=== PATIENT | female | born 1995 | race African-American/Black ===

== ENCOUNTER 2017-08-15 21:28 | Emergency (ER) | payer BC, OTHER ==
[2017-08-15 22:20] LABS: #Basophils 0.1 thou/uL (0.0-0.2); #Eosinphils 0.4 thou/uL (0.0-0.7); #Lymphocytes 2.9 thou/uL (1.20-3.40); #Monocytes 0.9 thou/uL (0.11-0.59); #Neutrophils 4.8 thou/uL (1.40-6.50); %Basophils 0.6 % (0.0-1.0); %Eosinophils 4.1 % (0.0-10.0); %Lymphocytes 32.4 % (28.0-48.0); %Monocytes 9.7 % (0.0-4.0); Hematocrit 39.4 % (36.0-47.0); Mean Platelet Volume 7.4 fL (7.4-10.4); Red Blood Cell (RBC) Count 4.47 mill/uL (4.00-5.20); White Blood Cell (WBC) Count 9.1 thou/uL (4.8-10.8)
[2017-08-15 22:34] LABS: ALT (SGPT) 26 U/L (8-55); AST (SGOT) 25 U/L (5-34); Alkaline Phosphatase 64 U/L (40-150); Anion Gap 14 mmol/L (10-20); BUN (Urea Nitrogen) 10 mg/dL (7.0-18.7); Bilirubin, Total 0.8 mg/dL (0.2-1.2); Calc. Creatinine Clearance 0 mL/min (70-130); Carbon Dioxide 24 mmol/L (22-29); Chloride 105 mmol/L (98-107); Estimated GFR-MDRD Greater than 90; Globulin 3.4 g/dL (2.4-3.5); Protein, Total 7.2 g/dL (6.0-8.3)
[2017-08-15 23:12] LABS: Bilirubin Small (Negative); Blood, Urine Moderate (Negative); Glucose, Urine (Dipstick) Negative (Negative); Ketone, Urine Negative (Negative); Nitrite Negative (Negative); Protein, Urine (Dipstick) Trace mg/dL (Neg-Trace)
[2017-08-15 23:14] LABS: Bacteria/HPF 1+ HPF (None Seen); Hyaline Casts/LPF 0-3 HYALINE CAST LPF (0-3 Hyaline)
[2017-08-15 23:23] LABS: Yeast-All Forms None Seen HPF (None Seen)
[2017-08-15 23:47] LABS: Amphetamine Not Detected (NotDetected); Methadone Not Detected (NotDetected); Methamphetamine Not Detected (NotDetected)
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
[2017-08-16] MEDS ORDERED: HYDROcodone/Acetaminophen 10/325 mg Tablet ONE (00:09)
== END 2017-08-16 00:24 | disposition home or self-care (01) ==
LOC: ERS 21:28
DX: G40.909 Epilepsy, unspecified, not intractable, without status epilepticus (principal); S00.93XA Contusion of unspecified part of head, initial encounter; F25.9 Schizoaffective disorder, unspecified; G43.909 Migraine, unspecified, not intractable, without status migrainosus; J45.909 Unspecified asthma, uncomplicated; F41.9 Anxiety disorder, unspecified; Z79.899 Other long term (current) drug therapy; W19.XXXA Unspecified fall, initial encounter
CPT/HCPCS: 36416; 70450; 80053; 80306; 81003; 81015; 81025; 83690; 84146; 84703; 85025; 93005; 94760

== ENCOUNTER 2017-10-09 09:25 | Outpatient (CLI) | payer BC, MEDICAID ==
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
== END 2017-10-09 09:26 | disposition home or self-care (01) ==
LOC: EEG 09:25
PROVIDERS: ATTEND Student in an Organized Health Care Education/Training Program
DX: G40.909 Epilepsy, unspecified, not intractable, without status epilepticus (principal); G93.89 Other specified disorders of brain; Q04.6 Congenital cerebral cysts
CPT/HCPCS: 70551; 95822

== ENCOUNTER 2017-10-25 11:02 | Emergency (ER) | payer BC, OTHER ==
--- NOTE | 2017-10-25 12:17 | RAD ---
PA AND LATERAL CHEST: Date: 10-25-17 History: Cough, chest pain. Congestion. Comparison: 07-11-15 FINDINGS: The cardiac silhouette and pulmonary vasculature are within normal limits. The lungs are clear. There has been no interval change from the prior exam. IMPRESSION: No acute cardiopulmonary process. POS: [facility]
== END 2017-10-25 14:30 | disposition home or self-care (01) ==
LOC: ERS 11:02
DX: J11.1 Influenza due to unidentified influenza virus with other respiratory manifestations (principal); R23.8 Other skin changes; G40.909 Epilepsy, unspecified, not intractable, without status epilepticus; G43.909 Migraine, unspecified, not intractable, without status migrainosus; J45.909 Unspecified asthma, uncomplicated; F25.9 Schizoaffective disorder, unspecified; F41.9 Anxiety disorder, unspecified; F32.9 Major depressive disorder, single episode, unspecified; Z79.899 Other long term (current) drug therapy
CPT/HCPCS: 71046; 87804; 93005

== ENCOUNTER 2018-05-11 15:44 | Emergency (ER) | payer BC, OTHER ==
[2018-05-11 16:27] LABS: #Basophils 0.1 thou/uL (0.0-0.2); #Eosinphils 0.4 thou/uL (0.0-0.7); #Lymphocytes 2.3 thou/uL (1.20-3.40); #Monocytes 0.7 thou/uL (0.11-0.59); #Neutrophils 6.9 thou/uL (1.40-6.50); %Basophils 0.5 % (0.0-1.0); %Lymphocytes 21.9 % (21.0-51.0); %Monocytes 6.5 % (0.0-10.0); Hemoglobin 12.8 g/dL (12.0-16.0); Mean Corpuscular HGB CONC 32.6 g/dL (32.0-36.0); Mean Corpuscular Hemoglobin 27.2 pg (27.0-31.0); Mean Corpuscular Volume 83.4 fL (78.0-98.0); Mean Platelet Volume 7.3 fL (7.4-10.4); Platelet Count 468 thou/uL (130-400); Red Blood Cell (RBC) Count 4.69 mill/uL (4.20-5.40); White Blood Cell (WBC) Count 10.3 thou/uL (4.8-10.8)
[2018-05-11 16:47] LABS: ALT (SGPT) 23 U/L (8-55); AST (SGOT) 19 U/L (5-34); Albumin 4.7 g/dL (3.5-5.0); Alkaline Phosphatase 77 U/L (40-150); Anion Gap 14 mmol/L (10-20); BUN (Urea Nitrogen) 11 mg/dL (7.0-18.7); Bilirubin, Total 1.3 mg/dL (0.2-1.2); Calc. Creatinine Clearance 0 mL/min (70-130); Calcium 9.7 mg/dL (7.8-10.44); Carbon Dioxide 26 mmol/L (22-29); Chloride 105 mmol/L (98-107); Estimated GFR-MDRD Greater than 90; Globulin 3.5 g/dL (2.4-3.5); Glucose 100 mg/dL (70-105); Potassium 3.2 mmol/L (3.5-5.1); Protein, Total 8.2 g/dL (6.0-8.3); Sodium 142 mmol/L (136-145)
[2018-05-11] MEDS ORDERED: hydrOXYzine 25 MG TAB ONE (17:20)
== END 2018-05-11 17:41 | disposition left against medical advice (07) ==
LOC: ERS 15:44
DX: R20.0 Anesthesia of skin (principal); F41.9 Anxiety disorder, unspecified; F32.9 Major depressive disorder, single episode, unspecified; Z79.899 Other long term (current) drug therapy
CPT/HCPCS: 36415; 36416; 80053; 85025; 93005

== ENCOUNTER 2018-05-17 22:47 | Emergency (ER) | payer OTHER ==
[2018-05-17] MEDS ORDERED: Acetaminophen 500 MG TAB ONE (23:09)
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
[2018-05-17] MEDS ORDERED: Bacitracin Zinc 1 Packet ONE (23:34)
[2018-05-17] MEDS ORDERED: traMADol HCl 50 MG TAB ONE (23:43)
== END 2018-05-17 23:50 | disposition home or self-care (01) ==
LOC: ERS 22:47
DX: S62.525A Nondisplaced fracture of distal phalanx of left thumb, initial encounter for closed fracture (principal); G40.909 Epilepsy, unspecified, not intractable, without status epilepticus; G43.909 Migraine, unspecified, not intractable, without status migrainosus; J45.909 Unspecified asthma, uncomplicated; F25.9 Schizoaffective disorder, unspecified; F41.9 Anxiety disorder, unspecified; F32.9 Major depressive disorder, single episode, unspecified; Z79.899 Other long term (current) drug therapy; W23.0XXA Caught, crushed, jammed, or pinched between moving objects, initial encounter

== ENCOUNTER 2018-05-22 14:29 | Emergency (ER) | payer OTHER ==
[2018-05-22] MEDS ORDERED: HYDROcodone/Acetaminophen 10/325 mg Tablet ONE (15:14)
--- NOTE | 2018-05-22 15:52 | RAD ---
LEFT THUMB RADIOGRAPHS THREE VIEWS: Date: 05-22-18 Provided Clinical History: Thumb pain status post injury. FINDINGS: Comparison made with 05-17-18. Nondisplaced fracture involving the terminal tuft of the thumb distal phalanx is redemonstrated. No a dditional fracture is evident. Alignment appears anatomic. Joint spaces appear preserved. IMPRESSION: Nondisplaced thumb distal phalangeal fractures are demonstrated. POS: [facility]
[2018-05-22] MEDS ORDERED: Bacitracin Zinc 1 Packet ONE (16:25)
== END 2018-05-22 16:51 | disposition home or self-care (01) ==
LOC: ERS 14:29
DX: S62.525A Nondisplaced fracture of distal phalanx of left thumb, initial encounter for closed fracture (principal); G40.909 Epilepsy, unspecified, not intractable, without status epilepticus; G43.909 Migraine, unspecified, not intractable, without status migrainosus; J45.909 Unspecified asthma, uncomplicated; F25.9 Schizoaffective disorder, unspecified; F32.9 Major depressive disorder, single episode, unspecified; F41.9 Anxiety disorder, unspecified; Z79.899 Other long term (current) drug therapy; W23.0XXA Caught, crushed, jammed, or pinched between moving objects, initial encounter

== ENCOUNTER 2018-07-16 19:28 | Emergency (ER) | payer OTHER ==
[2018-07-16] MEDS ORDERED: Magnesium Sulfate 2 GM/100 ML BAG ONE (19:39)
--- NOTE | 2018-07-16 19:51 | RAD ---
PORTABLE AP CHEST X-RAY 07/16/18 HISTORY: Asthma attack, dyspnea. COMPARISON: 07/11/15. FINDINGS: Cardiac silhouette and pulmonary vasculature are within normal limits for the portable technique of t he study. This exam is obtained with a shallow depth of inspiration and kyphotic positioning, but the lungs are clear. There has been no interval change from prior exam. IMPRESSION: No acute cardiopulmonary process. POS: [facility]
[2018-07-16] MEDS ORDERED: Albuterol Sulfate 2.5 mg/3 ml Neb ONE ×2 (19:52)
[2018-07-16 20:20] LABS: #Eosinphils 0.5 thou/uL (0.0-0.7); #Lymphocytes 2.6 thou/uL (1.20-3.40); #Monocytes 0.5 thou/uL (0.11-0.59); %Basophils 0.5 % (0.0-1.0); %Lymphocytes 27.2 % (21.0-51.0); %Monocytes 5.3 % (0.0-10.0); %Neutrophils 62.1 % (42.0-75.0); Hemoglobin 11.9 g/dL (12.0-16.0); Mean Corpuscular HGB CONC 30.7 g/dL (32.0-36.0); Mean Corpuscular Hemoglobin 26.5 pg (27.0-31.0); Mean Corpuscular Volume 86.1 fL (78.0-98.0); Mean Platelet Volume 7.6 fL (7.4-10.4); Platelet Count 389 thou/uL (130-400); RBC Distribution Width 14.9 % (11.5-14.5); Red Blood Cell (RBC) Count 4.49 mill/uL (4.20-5.40); White Blood Cell (WBC) Count 9.6 thou/uL (4.8-10.8)
[2018-07-16 20:43] LABS: ALT (SGPT) 15 U/L (8-55); AST (SGOT) 16 U/L (5-34); Albumin 4.1 g/dL (3.5-5.0); Alkaline Phosphatase 70 U/L (40-150); Anion Gap 15 mmol/L (10-20); BUN (Urea Nitrogen) 11 mg/dL (7.0-18.7); Bilirubin, Total 0.5 mg/dL (0.2-1.2); CK (CPK) 119 U/L (29-168); Calc. Creatinine Clearance 0 mL/min (70-130); Calcium 9.2 mg/dL (7.8-10.44); Carbon Dioxide 19 mmol/L (22-29); Chloride 107 mmol/L (98-107); Estimated GFR-MDRD Greater than 90; Globulin 3.2 g/dL (2.4-3.5); Glucose 133 mg/dL (70-105); Potassium 3.4 mmol/L (3.5-5.1); Protein, Total 7.3 g/dL (6.0-8.3); Sodium 138 mmol/L (136-145)
== END 2018-07-16 22:32 | disposition short-term general hospital (02) ==
LOC: ERS 19:28
DX: J45.901 Unspecified asthma with (acute) exacerbation (principal); G40.909 Epilepsy, unspecified, not intractable, without status epilepticus; G43.909 Migraine, unspecified, not intractable, without status migrainosus; F41.9 Anxiety disorder, unspecified; F32.9 Major depressive disorder, single episode, unspecified; Z79.899 Other long term (current) drug therapy
CPT/HCPCS: 36415; 71045; 80053; 82550; 85025; 93005; 94644; 96374; J3475; J7611; J7620

== ENCOUNTER 2018-12-21 01:27 | Inpatient (IN) | payer OTHER ==
[2018-12-21] MEDS ORDERED: EPINEPHrine 1 MG/ML AMP ONE ×3 (01:33→02:37)
[2018-12-21] MEDS ORDERED: methylPREDNISolone Sod Succ/PF 125 MG/2 ML VIAL ONE (01:33)
[2018-12-21] MEDS ORDERED: diphenhydrAMINE 50 MG/ML VIAL ONE (01:33)
[2018-12-21] MEDS ORDERED: Famotidine/PF 20 mg/2ml Vial ONE ×2 (01:33→09:51)
[2018-12-21] MEDS ORDERED: Ondansetron PF 4 MG/2 ML Vial ONE (01:49)
[2018-12-21] MEDS ORDERED: Magnesium 2 GM/50 ML BAG (IN WATER) ONE (03:05)
[2018-12-21 03:21] LABS: #Basophils 0.1 thou/uL (0.0-0.2); #Eosinphils 0.4 thou/uL (0.0-0.7); #Lymphocytes 3.4 thou/uL (1.20-3.40); #Monocytes 0.5 thou/uL (0.11-0.59); #Neutrophils 9.3 thou/uL (1.40-6.50); %Basophils 0.4 % (0.0-1.0); %Eosinophils 2.9 % (0.0-10.0); %Lymphocytes 24.7 % (21.0-51.0); %Monocytes 3.9 % (0.0-10.0); %Neutrophils 68.1 % (42.0-75.0); Hemoglobin 11.5 g/dL (12.0-16.0); Mean Corpuscular Hemoglobin 26.4 pg (27.0-31.0); Mean Corpuscular Volume 85.1 fL (78.0-98.0); Mean Platelet Volume 7.4 fL (7.4-10.4); Platelet Count 461 thou/uL (130-400); RBC Distribution Width 14.2 % (11.5-14.5); Red Blood Cell (RBC) Count 4.35 mill/uL (4.20-5.40); White Blood Cell (WBC) Count 13.6 thou/uL (4.8-10.8)
[2018-12-21 03:31] LABS: BHCG - Serum Negative (NEGATIVE); Pregs Control Background? CLEAR/WHITE (CLR/WHITE); Pregs Control Bar Appear? YES (CONTROL BAR)
[2018-12-21 03:44] LABS: ALT (SGPT) 13 U/L (8-55); AST (SGOT) 15 U/L (5-34); Alkaline Phosphatase 69 U/L (40-150); Anion Gap 14 mmol/L (10-20); BUN (Urea Nitrogen) 15 mg/dL (7.0-18.7); Bilirubin, Total 0.6 mg/dL (0.2-1.2); Calc. Creatinine Clearance 0 mL/min (70-130); Calcium 9.2 mg/dL (7.8-10.44); Carbon Dioxide 22 mmol/L (22-29); Chloride 105 mmol/L (98-107); Estimated GFR-MDRD Greater than 90; Globulin 3.1 g/dL (2.4-3.5); Glucose 199 mg/dL (70-105); Potassium 3.1 mmol/L (3.5-5.1); Protein, Total 7.1 g/dL (6.0-8.3); Sodium 138 mmol/L (136-145)
[2018-12-21] MEDS ORDERED: Albuterol Sulfate 1.25 MG/3 ML NEB NEB PRN (04:30)
[2018-12-21] MEDS ORDERED: Albuterol Sulfate 2.5 mg/3 ml Neb ONE (04:34)
[2018-12-21] MEDS ORDERED: Albuterol Sulfate 2.5 mg/0.5 ml Neb ONE (04:34)
[2018-12-21] MEDS ORDERED: diphenhydrAMINE 50 MG in Sodium Chloride 0.9% 50 ML IVPB SCH (04:45)
[2018-12-21] MEDS ORDERED: Ondansetron ODT 4 MG TAB PO PRN (05:06)
[2018-12-21] MEDS ORDERED: Acetaminophen 325 MG TAB PO PRN (05:06)
[2018-12-21] MEDS ORDERED: Ondansetron PF 4 MG/2 ML Vial IVP PRN (05:06)
[2018-12-21] MEDS ORDERED: methylPREDNISolone Sod Succ 40 MG VIAL ONE ×3 (07:46→18:05)
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
--- NOTE | 2018-12-21 08:32 | RAD ---
CHEST 1 VIEW: Date: 12/21/18 INDICATION: History of allergic reaction, wheezing, and dyspnea. COMPARISON: Prior exam dated 07/16/18. FINDINGS: There are low lung volumes accentuated with the cardiac silhouette and pulmonary vasculature. No defi nite consolidation, pleural effusion, or pneumothorax evident. IMPRESSION: Low lung volumes. POS: [facility]
[2018-12-21] MEDS ORDERED: Enoxaparin Sodium 40 MG/0.4 ML SYRINGE ONE (09:51)
[2018-12-21] MEDS ORDERED: Acetaminophen 500 MG TAB ONE (14:10)
[2018-12-21] MEDS: methylPREDNISolone Sod Succ/PF 125 MG/2 ML VIAL IVP SCH (18:26)
--- NOTE | 2018-12-21 19:30 | PDOC.PN ---
- Subjective Encounter Start Date: 12/21/18 Encounter Start Time: 08:40 Subjective: Seen -feeling better - Objective Resuscitation Status - Order Detail: 12/21/18 05:06 Resuscitation Status Routine Resuscitation Status: FULL: Full Resuscitation Vital Signs & Weight: Vital Signs (12 hours) Pulse Resp Pulse Ox 12/21/18 15:11 119 H 23 H 98 Result Diagrams: 12/21/18 03:13 12/21/18 03:13 Phys Exam - Physical Examination Constitutional: NAD HEENT: PERRLA, moist MMs, sclera anicteric Neck: no nodes, no JVD, supple, full ROM Respiratory: wheezing present Cardiovascular: RRR, no significant murmur, no rub Tachycardic Dx/Plan (1) Asthma Code(s): J45.909 - UNSPECIFIED ASTHMA, UNCOMPLICATED Status: Acute (2) Hypokalemia Code(s): E87.6 - HYPOKALEMIA Status: Acute (3) Obesity Code(s): E66.9 - OBESITY, UNSPECIFIED Status: Acute (4) Exacerbation of allergic asthma Code(s): J45.901 - UNSPECIFIED ASTHMA WITH (ACUTE) EXACERBATION Status: Acute - Plan DVT proph w/heparin pulmonary/critical consult * .
[2018-12-22] MEDS ORDERED: Famotidine/PF 20 mg/2ml Vial ONE (00:52)
[2018-12-22] MEDS ORDERED: methylPREDNISolone Sod Succ/PF 125 MG/2 ML VIAL ONE ×2 (00:52→06:42)
[2018-12-22] MEDS: Famotidine/PF 20 mg/2ml Vial SLOW IVP SCH ×4 (01:11→20:28)
[2018-12-22] MEDS: methylPREDNISolone Sod Succ/PF 125 MG/2 ML VIAL IVP SCH ×4 (01:11→14:18)
[2018-12-22] MEDS: diphenhydrAMINE 50 MG in Sodium Chloride 0.9% 50 ML IVPB SCH ×4 (01:12→17:14)
[2018-12-22 04:36] LABS: Band 6 % (5-11); Hemoglobin 11.1 g/dL (12.0-16.0); Lymphocytes 2 % (21-51); MDiff Complete? YES; Mean Corpuscular HGB CONC 30.6 g/dL (32.0-36.0); Mean Platelet Volume 7.7 fL (7.4-10.4); Monocytes 2 % (0-10); Neutrophil 90 % (42-75); Platelet Count 440 thou/uL (130-400); Platelet Morphology Comment Appears Adequate; RBC Distribution Width 14.3 % (11.5-14.5); RBC Morphology Normal; Red Blood Cell (RBC) Count 4.26 mill/uL (4.20-5.40); White Blood Cell (WBC) Count 20.5 thou/uL (4.8-10.8)
[2018-12-22 04:40] LABS: Anion Gap 13 mmol/L (10-20); BUN (Urea Nitrogen) 9 mg/dL (7.0-18.7); Calc. Creatinine Clearance 0 mL/min (70-130); Calcium 9.3 mg/dL (7.8-10.44); Carbon Dioxide 22 mmol/L (22-29); Chloride 107 mmol/L (98-107); Estimated GFR-MDRD Greater than 90; Glucose 149 mg/dL (70-105); Potassium 4.5 mmol/L (3.5-5.1); Sodium 137 mmol/L (136-145)
[2018-12-22] MEDS: Enoxaparin Sodium 40 MG/0.4 ML SYRINGE SC SCH ×2 (07:56→12:18)
[2018-12-22 08:38] VITALS: BMI 51.8
--- NOTE | 2018-12-22 10:22 | PDOC.PN ---
- Subjective Encounter Start Date: 12/22/18 Encounter Start Time: 11:20 Subjective: Patient reports breathing improved. No more wheezing. She does get diffuse -: tightness and pressure across her back that resolved with nebs but -: comes back in about 2 hours. Feels weak and unstable on standing. - Objective Resuscitation Status - Order Detail: 12/21/18 05:06 Resuscitation Status Routine Resuscitation Status: FULL: Full Resuscitation MAR Reviewed: Yes Vital Signs & Weight: Vital Signs (12 hours) Temp Pulse Resp BP Pulse Ox 12/22/18 08:30 98.2 F 113 H 18 122/74 94 L 12/22/18 07:27 99 22 H 95 12/21/18 22:41 107 H 17 96 Weight Weight 274 lb 9.6 oz Result Diagrams: 12/22/18 03:54 12/22/18 03:54 Phys Exam - Physical Examination Constitutional: NAD HEENT: moist MMs Respiratory: no wheezing, no rales, no rhonchi, clear to auscultation bilateral breathing easily on room air on my exam Cardiovascular: RRR, no significant murmur Gastrointestinal: soft, positive bowel sounds Musculoskeletal: no edema Neurological: non-focal, moves all 4 limbs Psychiatric: normal affect, A&O x 3 Dx/Plan (1) Anaphylaxis Code(s): T78.2XXA - ANAPHYLACTIC SHOCK, UNSPECIFIED, INITIAL ENCOUNTER Status : Acute Comment: uncertain trigger, improved after multiple doses of epinephrine in the ER (2) Exacerbation of allergic asthma Code(s): J45.901 - UNSPECIFIED ASTHMA WITH (ACUTE) EXACERBATION Status: Acute Comment: on nebs, steroids, pulmonary consult (3) Hypokalemia Code(s): E87.6 - HYPOKALEMIA Status: Resolved (4) Obesity Code(s): E66.9 - OBESITY, UNSPECIFIED Status: Chronic (5) Unsteady gait Code(s): R26.81 - UNSTEADINESS ON FEET Status: Acute Comment: check orthostatics, PT consult - Plan cont current plan of care, respiratory therapy * . - Discharge Day Encounter end time: 11:30
[2018-12-22] MEDS ORDERED: DULoxetine 60 MG CAP PO SCH (21:00)
[2018-12-22] MEDS ORDERED: Montelukast Sodium 10 mg Tablet PO SCH (21:00)
[2018-12-22] MEDS ORDERED: LURASIDONE HCL 30 MG PO SCH (21:00)
[2018-12-22] MEDS ORDERED: hydrOXYzine 25 MG TAB PO SCH (21:00)
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
[2018-12-23] MEDS: Mometasone/Formoterol 120 PUFF INHALER INH SCH ×3 (00:28→19:51)
[2018-12-23] MEDS ORDERED: predniSONE 20 MG TAB PO SCH (08:00)
--- NOTE | 2018-12-23 09:04 | PDOC.PN ---
- Subjective Encounter Start Date: 12/23/18 Encounter Start Time: 10:10 Subjective: Patient with marked improvement in SOB and chest tightness. Able -: to walk more steadily as well. - Objective Resuscitation Status - Order Detail: 12/21/18 05:06 Resuscitation Status Routine Resuscitation Status: FULL: Full Resuscitation MAR Reviewed: Yes Vital Signs & Weight: Vital Signs (12 hours) Temp Pulse Resp BP BP Pulse Ox 12/23/18 08:00 99 F 86 20 113/72 93 L 12/23/18 06:57 60 14 12/23/18 04:00 98.0 F 73 20 126/73 98 12/23/18 00:31 93 18 96 Weight Weight 273 lb 8 oz I&O: 12/22/18 12/23/18 12/24/18 06:59 06:59 06:59 Intake Total 600 Balance 600 Result Diagrams: 12/22/18 03:54 12/22/18 03:54 Phys Exam - Physical Examination Constitutional: NAD HEENT: moist MMs Respiratory: no wheezing, no rales, no rhonchi, clear to auscultation bilateral Cardiovascular: RRR, no significant murmur Gastrointestinal: soft, positive bowel sounds Musculoskeletal: no edema Neurological: non-focal, moves all 4 limbs Psychiatric: normal affect, A&O x 3 Dx/Plan (1) Anaphylaxis Code(s): T78.2XXA - ANAPHYLACTIC SHOCK, UNSPECIFIED, INITIAL ENCOUNTER Status : Resolved Comment: uncertain trigger, improved after multiple doses of epinephrine in the ER (2) Exacerbation of allergic asthma Code(s): J45.901 - UNSPECIFIED ASTHMA WITH (ACUTE) EXACERBATION Status: Acute Comment: on nebs, steroids, Dr. Burgos following (3) Hypokalemia Code(s): E87.6 - HYPOKALEMIA Status: Resolved (4) Obesity Code(s): E66.9 - OBESITY, UNSPECIFIED Status: Chronic (5) Unsteady gait Code(s): R26.81 - UNSTEADINESS ON FEET Status: Acute Comment: No orthostatic hypotension, reported dizziness and LE pain with ambulation but steady on feet per physical therapy - Plan cont current plan of care, PT/OT, respiratory therapy, DVT proph w/lovenox * . - Discharge Day Encounter end time: 10:20
[2018-12-23] MEDS: Famotidine/PF 20 mg/2ml Vial SLOW IVP SCH (10:32)
[2018-12-23] MEDS: Enoxaparin Sodium 40 MG/0.4 ML SYRINGE SC SCH (10:32)
[2018-12-23 12:19] VITALS: TEMP 97.9
[2018-12-23 14:31] VITALS: BP 134/66
[2018-12-23] MEDS ORDERED: Famotidine 20 MG TAB PO SCH (21:00)
--- NOTE | 2018-12-24 03:05 | DIS ---
DATE OF ADMISSION: 12/21/2018 DATE OF DISCHARGE: 12/23/2018 PRIMARY CARE PHYSICIAN: Dr. Arlyn Villatoro. REASON FOR ADMISSION: Respiratory anaphylaxis. DIAGNOSES AT DISCHARGE: 1. Anaphylaxis, resolved. 2. Asthma exacerbation, improved. 3. Hypokalemia, resolved. 4. Obesity. PROCEDURES: None. CONSULTATIONS: Pulmonology, Dr. Burgos. SUMMARY OF HOSPITAL COURSE: This is a 23-year-old [place]ro[place] female with a history of severe allergies and previous asthma as well as many intubations for allergy reactions in the past. The patient had sudden onset of shortness of breath at the theater, uncertain if she had eaten anything unusual at that time. She was seen in the emergency room, had severe respiratory distress, and was given 4 doses of epinephrine with resolution of the severe distress, was given steroids and nebs, and then admitted to the hospital. Dr. Burgos was consulted. The patient continued to have some asthma symptoms, but no more of the severe respiratory distress. No swelling in her throat, tongue, or lips, or any other further anaphylactic symptoms. She improved over the course of hospitalization. Initially, she feels a little unsteady on her feet, but that improved during hospitalization. She also had some hypokalemia. This resolved with supplementation. On the day of discharge, the patient was breathing easily and was ready to go home. DISCHARGE MANAGEMENT: Discharged home. FOLLOWUP: Follow up with Dr. Burgos in 1 month. ACTIVITY: As tolerated. DIET: Healthy heart, low-sodium diet. MEDICATIONS: 1. Montelukast 10 mg daily, 30 tablets dispensed. 2. Prednisone 40 mg daily for 4 more days for a total of 6 days of steroids. 3. Continue duloxetine 60 mg at night. 4. Hydroxyzine 25 mg at night. 5. Latuda 30 mg at night. 6. Albuterol neb as needed. 7. Epinephrine autoinjector as needed. 8. Flovent 2 puffs inhaled twice a day, 110 mcg inhaler. 9. Fluticasone/salmeterol(Advair) 115/21 two inhalations twice a day. 10. Loratadine 10 mg daily as needed. 11. Metformin 500 mg twice a day. Job ID: [id number]
--- NOTE | 2018-12-24 09:21 | PRG ---
DATE OF SERVICE: 12/23/2018 SERVICE: Pulmonary Medicine. INTERVAL HISTORY: The patient is doing really well from respiratory standpoint. Breathing comfortably. Otherwise, there has been no interval change to the condition of the patient. She is breathing comfortably. She feels like her breathing is essentially back to baseline. I gave her the option of going home today or tomorrow and she preferred to go home today feeling perfectly comfortable, taking care of herself from here on out in her home. PHYSICAL EXAMINATION: VITAL SIGNS: Afebrile, pulse 97, blood pressure 108/57, respirations is 16, saturation 93% on room air. GENERAL: The patient is awake and alert, in no apparent distress. LUNGS: Much improved air entry. There is no prolongation of the expiratory phase, although a very small amount of wheezing is present. I do not appreciate any rhonchi or crackles. HEART: Normal rate regular. ABDOMEN: Soft, nontender, nondistended. Bowel sounds are positive. MUSCULOSKELETAL: No cyanosis or clubbing. EXTREMITIES: No pitting in the bilateral lower extremities. NEUROLOGIC: Grossly nonfocal. ASSESSMENT: 1. Anaphylaxis with angioedema and no hypotension. 2. Asthma with acute exacerbation. 3. Morbid obesity. 4. Obstructive sleep apnea, suspected. 5. Gastroesophageal reflux disease, severe. DISCUSSION AND PLAN: The patient is doing fine from a respiratory standpoint. She is stable for discharge from the hospital. I will continue the Flovent. I will add singular. I will have her return to clinic in 2 to 4 weeks in the outpatient setting, so that we can set her up for a polysomnogram, and further modify her asthma medications, if required. If she remains in-house, I will continue to follow, but my suspicion is she will be going home today. Job ID: [id number]
== END 2018-12-23 06:40 | disposition home or self-care (01) | DRG 916 ==
LOC: ERS 01:27 → ERHOLD 03:41 → 2NO 12-22 08:25
PROVIDERS: ADMIT Hospitalist; ATTEND Hospitalist
DX: T78.2XXA Anaphylactic shock, unspecified, initial encounter (principal); J45.901 Unspecified asthma with (acute) exacerbation; Z68.43 Body mass index [BMI] 50.0-59.9, adult; F25.9 Schizoaffective disorder, unspecified; R00.0 Tachycardia, unspecified; E87.6 Hypokalemia; R26.81 Unsteadiness on feet; G40.909 Epilepsy, unspecified, not intractable, without status epilepticus; K21.9 Gastro-esophageal reflux disease without esophagitis; E66.01 Morbid (severe) obesity due to excess calories; Z90.89 Acquired absence of other organs; Z88.1 Allergy status to other antibiotic agents; Z88.0 Allergy status to penicillin; Z91.010 Allergy to peanuts; Z91.013 Allergy to seafood
CPT/HCPCS: 36415; 71045; 80048; 80053; 84703; 85025; 94640; J0171; J1200; J1650; J2405; J2920; J2930; J3475; J7050; J7611; J7620; S0028

== ENCOUNTER 2019-06-06 20:57 | Inpatient (IN) | payer OTHER ==
[~2019-06-06 20:57] MED LIST: ISOVUE-370 76%-LOCM 1 ML ONE
[2019-06-06] MEDS ORDERED: Adenosine 6 MG/2 ML VIAL ONE (21:46)
--- NOTE | 2019-06-06 22:04 | CT ---
CT ANGIOGRAM THORAX WITH CONTRAST: (CTA pulmonary angiogram) DATE: 06/06/2019 HISTORY: 24-year-old female with dyspnea TECHNIQUE: IV injection of iodinated contrast. Scan acquisition timing attempted to coincide with iodinated contrast bolus reaching maximal density in pulmonary arteries. 3-D MIP reconstructions. FINDINGS: Pulmonary thromboembolism: None. Lungs: Clear. Pneumothorax: None. Pleural effusion: None. Thoracic aorta: No aneurysm or dissection. Mediastinum: No lymphadenopathy or other mass. Belle: No lymphadenopathy or other mass. Post surgical changes of stomach IMPRESSION: 1. Normal chest. No pulmonary thromboembolism. 2. Status post vertical sleeve gastrectomy.
[2019-06-06 22:07] LABS: #Basophils 0.1 thou/uL (0.0-0.2); #Eosinphils 0.2 thou/uL (0.0-0.7); #Lymphocytes 2.6 thou/uL (1.20-3.40); #Monocytes 0.8 thou/uL (0.11-0.59); #Neutrophils 3.3 thou/uL (1.40-6.50); %Basophils 1.7 % (0.0-1.0); %Eosinophils 3.3 % (0.0-10.0); %Lymphocytes 36.5 % (21.0-51.0); %Monocytes 11.8 % (0.0-10.0); %Neutrophils 46.7 % (42.0-75.0); Hemoglobin 11.1 g/dL (12.0-16.0); Mean Corpuscular HGB CONC 31.8 g/dL (32.0-36.0); Mean Corpuscular Hemoglobin 25.9 pg (27.0-31.0); Mean Corpuscular Volume 81.4 fL (78.0-98.0); Mean Platelet Volume 8.8 fL (7.4-10.4); Platelet Count 264 thou/uL (130-400); RBC Distribution Width 16.9 % (11.5-14.5); White Blood Cell (WBC) Count 7.1 thou/uL (4.8-10.8)
[2019-06-06 22:13] LABS: INR-International Normal Ratio 1.2; PTT 28.1 SEC (22.9-36.1)
[2019-06-06 22:15] LABS: BHCG - Serum Negative (NEGATIVE); Pregs Control Background? CLEAR/WHITE (CLR/WHITE); Pregs Control Bar Appear? YES (CONTROL BAR)
[2019-06-06 22:26] LABS: ALT (SGPT) 21 U/L (8-55); AST (SGOT) 18 U/L (5-34); Albumin 3.4 g/dL (3.5-5.0); Alkaline Phosphatase 52 U/L (40-150); Anion Gap 17 mmol/L (10-20); BUN (Urea Nitrogen) 7 mg/dL (7.0-18.7); Bilirubin, Total 1.3 mg/dL (0.2-1.2); CK (CPK) 66 U/L (29-168); Calc. Creatinine Clearance 0 mL/min (70-130); Calcium 7.8 mg/dL (7.8-10.44); Carbon Dioxide 17 mmol/L (22-29); Chloride 109 mmol/L (98-107); Estimated GFR-MDRD 78; Globulin 2.1 g/dL (2.4-3.5); Glucose 81 mg/dL (70-105); Protein, Total 5.5 g/dL (6.0-8.3); Sodium 140 mmol/L (136-145)
[2019-06-06 22:32] LABS: Potassium 2.8 mmol/L (3.5-5.1)
[2019-06-06] MEDS ORDERED: Potassium Chloride 20 MEQ TAB ONE (22:34)
[2019-06-06] MEDS ORDERED: Magnesium Sulfate 2 GM in Sodium Chloride 0.9% 100 ML IVPB SCH (23:15)
[2019-06-06] MEDS ORDERED: Magnesium 2 GM/50 ML 2 GM in Premix Bag 1 BAG IVPB SCH (23:30)
[2019-06-07] MEDS ORDERED: Nitroglycerin 0.4 MG TAB (25 Tab Bottle) PO PRN ×2 (00:36→00:57)
[2019-06-07] MEDS ORDERED: Potassium Chloride 40 MEQ in Sodium Chloride 0.45% 1,000 ML IV SCH (00:45)
[2019-06-07] MEDS ORDERED: Calcium Carbonate 500 MG ChewTAB PO PRN (00:45)
[2019-06-07 00:58] VITALS: BMI 41.6
[2019-06-07] MEDS ORDERED: Aspirin 325 MG TAB PO SCH (01:00)
[2019-06-07] MEDS ORDERED: Sodium Chloride 0.9% 1,000 ML IV SCH (01:00)
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
[2019-06-07] MEDS: Acetaminophen 325 MG TAB PO PRN (02:04)
[2019-06-07] MEDS: Potassium Chloride 40 MEQ in Sodium Chloride 0.45% 1,000 ML IV SCH ×2 (02:09→12:58)
[2019-06-07 03:13] LABS: Lactic Acid 1.1 mmol/L (0.5-2.2)
[2019-06-07 03:23] LABS: Anion Gap 14 mmol/L (10-20); BUN (Urea Nitrogen) 7 mg/dL (7.0-18.7); Calc. Creatinine Clearance 164 mL/min (70-130); Calcium 8.4 mg/dL (7.8-10.44); Carbon Dioxide 20 mmol/L (22-29); Chloride 110 mmol/L (98-107); Estimated GFR-MDRD Greater than 90; Glucose 91 mg/dL (70-105); Sodium 141 mmol/L (136-145)
[2019-06-07] MEDS ORDERED: Potassium Chloride 20 MEQ TAB PO SCH (03:45)
[2019-06-07] MEDS: Mometasone/Formoterol 120 PUFF INHALER INH SCH ×2 (07:55→18:27)
[2019-06-07] MEDS: Potassium Chloride 20 MEQ TAB PO SCH ×2 (08:32→16:35)
[2019-06-07] MEDS: Enoxaparin Sodium 40 MG/0.4 ML SYRINGE SC SCH (08:32)
[2019-06-07] MEDS: Aspirin 325 mg Enteric Coated Tablet PO SCH (08:32)
[2019-06-07] MEDS ORDERED: Aspirin 325 mg Enteric Coated Tablet PO SCH (09:00)
[2019-06-07] MEDS ORDERED: Enoxaparin Sodium 40 MG/0.4 ML SYRINGE SC SCH (09:00)
[2019-06-07] MEDS ORDERED: Lorazepam 2 MG/ML VIAL ONE (09:34)
[2019-06-07] MEDS ORDERED: levETIRAcetam In NaCl (Iso-Os) 1,500 MG in Premix Bag 1 BAG IVPB SCH (09:45)
[2019-06-07] MEDS ORDERED: Lorazepam 2 MG/ML VIAL SLOW IVP SCH (09:45)
[2019-06-07 10:29] LABS: Lactic Acid 2.3 mmol/L (0.5-2.2)
[2019-06-07 10:38] LABS: Troponin I Less than 0.010 ng/mL (< 0.028)
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
[2019-06-07 13:39] LABS: Troponin I Less than 0.010 ng/mL (< 0.028)
[2019-06-07] MEDS ORDERED: LURASIDONE HCL 30 MG PO SCH (17:00)
--- NOTE | 2019-06-07 17:20 | PDOC.HOSPP ---
- Subjective Encounter Date: 06/07/19 Encounter Time: 08:00 Subjective: pt up in bed having seizure ( pseudoseizure). Rapid respond called and pt was given ativan and keppra. her prolactin was normal. neurology has been consulted. pt was talking between her seizure and was having some resistance during the seizure while doing her exam. - Objective Vital Signs & Weight: Vital Signs (12 hours) Temp Pulse Pulse Pulse Resp Resp Resp 06/07/19 15:40 98.2 F 102 H 16 06/07/19 11:12 99.8 F H 140 H 18 06/07/19 09:54 145 H 144 H 18 18 06/07/19 07:55 94 12 06/07/19 07:26 97.6 F 78 16 BP BP BP Pulse Ox Pulse Ox Pulse Ox 06/07/19 15:40 119/60 95 06/07/19 11:12 117/60 98 06/07/19 09:54 133/62 136/80 100 100 06/07/19 07:55 06/07/19 07:26 96/52 L 98 Weight Weight 220 lb 4.8 oz I&O: 06/06/19 06/07/19 06/08/19 06:59 06:59 06:59 Intake Total 1296 Balance 1296 Result Diagrams: 06/06/19 21:56 06/07/19 02:52 ROS - Review of Systems Other: pt having seizure - Medication Medications: Active Medications Generic Name Dose Route Start Last Admin Trade Name Freq PRN Reason Stop Dose Admin Acetaminophen 650 mg 06/07/19 00:45 06/07/19 02:04 Tylenol PO 650 mg Q4H PRN Administration Headache/Fever/Mild Pain (1-3) Aspirin 325 mg 06/07/19 09:00 06/07/19 08:32 Ecotrin PO 325 mg DAILY MARY Administration Enoxaparin Sodium 40 mg 06/07/19 09:00 06/07/19 08:32 Lovenox SC 40 mg 0900 MARY Administration Potassium Chloride 40 meq/ 1,020 mls @ 100 mls/hr 06/07/19 01:15 06/07/19 12: 58 Sodium Chloride IV 1,020 mls .[id number] MARY Administration Mometasone Furoate/Formoterol Fumar 2 puff 06/07/19 06:30 06/07/19 07:55 Dulera 200 Mcg/5 Mcg Inhaler INH 2 puff BID-RT MARY Administration - Exam Neck: negative: supple, symmetric, no JVD, no thyromegaly, no lymphadenopathy, no carotid bruit, JVD Heart: negative: RRR, no murmur, no gallops, no rubs, normal peripheral pulses, irregular, diminshed peripheral pulses, murmur present, II/IV, III/IV Respiratory: negative: CTAB, no wheezes, no rales, no ronchi, normal chest expansion, no tachypnea, normal percussion, rales, rhonchi, tachypneic, wheezes Hosp A/P (1) Seizure Code(s): R56.9 - UNSPECIFIED CONVULSIONS Status: Acute (2) Obesity Code(s): E66.9 - OBESITY, UNSPECIFIED Status: Chronic (3) Sinus tachycardia Code(s): R00.0 - TACHYCARDIA, UNSPECIFIED Status: Acute - Plan Rapid response called and pt having seizure. pt was given ativan and keppra. Appears to be pseudoseizure but will consult neurology.
[2019-06-07 17:25] LABS: Troponin I Less than 0.010 ng/mL (< 0.028)
[2019-06-07] MEDS ORDERED: Lorazepam 0.5 MG TAB PO PRN (20:15)
[2019-06-07] MEDS: Lorazepam 2 MG/ML VIAL SLOW IVP PRN (20:28)
[2019-06-07] MEDS: lamoTRIgine 25 MG TAB PO SCH (23:35)
[2019-06-07] MEDS: hydrOXYzine 25 MG TAB PO SCH (23:36)
[2019-06-07] MEDS: Loratadine 10 MG TAB PO SCH (23:36)
[2019-06-07] MEDS: DULoxetine 60 MG CAP PO SCH (23:36)
[2019-06-08 05:18] LABS: ALT (SGPT) 19 U/L (8-55); AST (SGOT) 15 U/L (5-34); Albumin 3.3 g/dL (3.5-5.0); Alkaline Phosphatase 50 U/L (40-150); Anion Gap 10 mmol/L (10-20); BUN (Urea Nitrogen) 4 mg/dL (7.0-18.7); Bilirubin, Total 1.4 mg/dL (0.2-1.2); Calc. Creatinine Clearance 193 mL/min (70-130); Calcium 8.6 mg/dL (7.8-10.44); Carbon Dioxide 23 mmol/L (22-29); Chloride 109 mmol/L (98-107); Estimated GFR-MDRD Greater than 90; Glucose 82 mg/dL (70-105); Magnesium 1.9 mg/dL (1.6-2.6); Potassium 3.4 mmol/L (3.5-5.1); Protein, Total 5.3 g/dL (6.0-8.3); Sodium 139 mmol/L (136-145)
[2019-06-08 05:36] LABS: Band 2 % (5-11); Eosinophils 10 % (0-10); Hemoglobin 10.9 g/dL (12.0-16.0); Lymphocytes 48 % (21-51); MDiff Complete? YES; Mean Corpuscular HGB CONC 31.6 g/dL (32.0-36.0); Mean Corpuscular Hemoglobin 25.9 pg (27.0-31.0); Mean Platelet Volume 8.9 fL (7.4-10.4); Monocytes 10 % (0-10); Neutrophil 30 % (42-75); Platelet Count 264 thou/uL (130-400); RBC Distribution Width 17.2 % (11.5-14.5); White Blood Cell (WBC) Count 5.7 thou/uL (4.8-10.8)
[2019-06-08] MEDS: Potassium Chloride 40 MEQ in Sodium Chloride 0.45% 1,000 ML IV SCH ×2 (06:35→08:38)
[2019-06-08] MEDS: Mometasone/Formoterol 120 PUFF INHALER INH SCH ×2 (07:13→18:09)
[2019-06-08] MEDS ORDERED: Potassium Chloride 20 MEQ TAB PO SCH (07:30)
[2019-06-08] MEDS: Aspirin 325 mg Enteric Coated Tablet PO SCH (08:39)
[2019-06-08] MEDS: Enoxaparin Sodium 40 MG/0.4 ML SYRINGE SC SCH (08:41)
[2019-06-08] MEDS ORDERED: Lorazepam 2 MG/ML VIAL SLOW IVP SCH (12:15)
--- NOTE | 2019-06-08 13:25 | PDOC.HOSPP ---
- Subjective Encounter Date: 06/08/19 Encounter Time: 10:15 - Objective Vital Signs & Weight: Vital Signs (12 hours) Temp Pulse Resp BP Pulse Ox 06/08/19 11:34 98.3 F 97 18 113/63 97 06/08/19 08:31 100 06/08/19 07:39 97.6 F 101 H 16 123/60 100 06/08/19 07:13 51 L 16 100 06/08/19 03:48 98 F 103 H 18 119/69 98 06/08/19 03:03 97 Weight Weight 220 lb 4.8 oz I&O: 06/07/19 06/08/19 06/09/19 06:59 06:59 06:59 Intake Total 1296 780 Balance 1296 780 Result Diagrams: 06/08/19 04:30 06/08/19 04:30 ROS - Medication Medications: Active Medications Generic Name Dose Route Start Last Admin Trade Name Freq PRN Reason Stop Dose Admin Acetaminophen 650 mg 06/07/19 00:45 06/07/19 02:04 Tylenol PO 650 mg Q4H PRN Administration Headache/Fever/Mild Pain (1-3) Aspirin 325 mg 06/07/19 09:00 06/08/19 08:39 Ecotrin PO 325 mg DAILY MARY Administration Duloxetine HCl 60 mg 06/07/19 21:00 06/07/19 23:36 Cymbalta PO 60 mg HS MARY Administration Enoxaparin Sodium 40 mg 06/07/19 09:00 06/08/19 08:41 Lovenox SC 40 mg 0900 MARY Administration Hydroxyzine HCl 25 mg 06/07/19 21:00 06/07/19 23:36 Atarax PO 25 mg HS MARY Administration Potassium Chloride 40 meq/ 1,020 mls @ 100 mls/hr 06/07/19 01:15 06/08/19 08: 38 Sodium Chloride IV 1,020 mls .[id number] MARY Administration Lamotrigine 25 mg 06/07/19 21:00 06/07/19 23:35 Lamictal PO 25 mg HS MARY Administration Loratadine 10 mg 06/07/19 21:00 06/07/19 23:36 Claritin PO 10 mg HS MARY Administration Lorazepam 0.5 mg 06/07/19 20:21 06/07/19 20:28 Ativan SLOW IVP 0.5 mg Q6H PRN Administration Seizures Mometasone Furoate/Formoterol Fumar 2 puff 06/07/19 06:30 06/08/19 07:13 Dulera 200 Mcg/5 Mcg Inhaler INH 2 puff BID-RT MARY Administration Sodium Chloride 10 ml 06/07/19 00:57 06/07/19 20:29 Flush - Normal Saline IVF 10 ml PRN PRN Administration Saline Flush Hosp A/P (1) Seizure Code(s): R56.9 - UNSPECIFIED CONVULSIONS Status: Acute (2) Obesity Code(s): E66.9 - OBESITY, UNSPECIFIED Status: Chronic (3) Sinus tachycardia Code(s): R00.0 - TACHYCARDIA, UNSPECIFIED Status: Acute - Plan Rapid response called and pt having seizure. pt was given ativan and keppra. Appears to be pseudoseizure but will consult neurology.
[2019-06-08] MEDS: Lorazepam 2 MG/ML VIAL SLOW IVP PRN (13:51)
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
[2019-06-08] MEDS: Acetaminophen 325 MG TAB PO PRN (14:59)
[2019-06-08] MEDS ORDERED: diphenhydrAMINE 50 MG/ML VIAL IVP SCH (16:45)
--- NOTE | 2019-06-08 16:49 | PRG ---
DATE OF SERVICE: 06/08/2019 Ms. Glynn had her EEG done today. During this study, she had some hemibody jerking that lasted for around 4 minutes according to the architecture technician. There was no alteration of the background in the midst of this event. 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 No acute changes were present. She has been taking Lamictal from Dr. Bernstein at [facility]. I have suggested that she follow up with him as an outpatient. I do not see any acute neurologic issues. I have explained to them that this appears to be a stress reaction. Job ID: [id number]
[2019-06-08] MEDS: hydrOXYzine 25 MG TAB PO SCH (20:39)
[2019-06-08] MEDS: Loratadine 10 MG TAB PO SCH (20:39)
[2019-06-08] MEDS: lamoTRIgine 25 MG TAB PO SCH (20:39)
[2019-06-08] MEDS: DULoxetine 60 MG CAP PO SCH (20:39)
[2019-06-09] MEDS: Acetaminophen 325 MG TAB PO PRN (04:19)
[2019-06-09] MEDS: Potassium Chloride 40 MEQ in Sodium Chloride 0.45% 1,000 ML IV SCH ×2 (04:39→16:29)
[2019-06-09] MEDS: Mometasone/Formoterol 120 PUFF INHALER INH SCH ×2 (06:41→18:09)
--- NOTE | 2019-06-09 09:18 | EEG ---
Referring Physician: Shorty CARDENAS EEG # [id number] TEST TYPE: ROUTINE PORTABLE INPATIENT REPORT: AN EEG USING THE INTERNATIONAL TEN-TWENTY SYSTEM OF ELECTRODE PLACEMENT WAS PERFORMED. The waking background is a 9 hertz alpha frequency. The patient remained awake throughout the study. Photic stimulation was unremarkable. No epileptiform features were seen. IMPRESSION: THIS IS A NORMAL AWAKE EEG. Gear Tester: SWETHA Pile Driving Technician: EEG.LAURIE KIRK
[2019-06-09] MEDS: Enoxaparin Sodium 40 MG/0.4 ML SYRINGE SC SCH (09:28)
[2019-06-09] MEDS: Aspirin 325 mg Enteric Coated Tablet PO SCH (09:28)
[2019-06-09 20:04] VITALS: BP 129/73; TEMP 97.6
[2019-06-09] MEDS: lamoTRIgine 25 MG TAB PO SCH (20:14)
[2019-06-09] MEDS: Loratadine 10 MG TAB PO SCH (20:14)
[2019-06-09] MEDS: hydrOXYzine 25 MG TAB PO SCH (20:14)
[2019-06-09] MEDS: DULoxetine 60 MG CAP PO SCH (20:14)
--- NOTE | 2019-06-09 22:45 | EKG ---
Test Reason : Blood Pressure : / mmHG Vent. Rate : 141 BPM Atrial Rate : 141 BPM P-R Int : 000 ms QRS Dur : 076 ms QT Int : 366 ms P-R-T Axes : 000 044 -16 degrees QTc Int : 560 ms Sinus tachycardia Possible atrial flutter 2:1block. Nonspecific T wave abnormality Abnormal ECG When compared with ECG of 16-JUL-2018 19:46, Nonspecific T wave abnormality, worse in Inferior leads Nonspecific T wave abnormality now evident in Anterolateral leads Confirmed by David WINTER ([id number]) on 06/09/2019 10:45:41 PM Referred By: RG Confirmed By:David WINTER
--- NOTE | 2019-06-10 02:14 | DIS ---
DATE OF ADMISSION: 06/06/2019 DATE OF DISCHARGE: 06/09/2019 DISCHARGE DIAGNOSES: 1. Chest pain resolved, sharp. CTA negative. 2. Pseudoseizures. However, patient is on antiseizure medications which we will continue. 3. Obesity. 4. 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 HOSPITAL COURSE: The patient is a 24-year-old female, who initially presented to the hospital with sharp chest pain. She did have a chest CTA to rule out PE since she is getting testosterone shots. The CTA indicated no pulmonary embolism and she is status post ventral sleeve gastrectomy. While she was in the hospital, code liz was called because the patient appeared to have a seizure-like activity. However, at that time, her vitals were completely stable. Upon my assessment, since I was present for the code green, this happened on 06/07. It appears that it was a pseudoseizure. We did consult Neurology. She underwent an MRI of the brain, which indicated an old insult of the brain in the right temporoparietal region just deep into the site of prior craniotomy. However, there was no interval changes. She also had an EEG, which did not indicate any seizure-like activity. During the EEG, she did have jerky-like movements which was similar to her prior seizures that she has been having apparently in the hospital. This is the reason why the code green was called. Neurology did not think that she was having any seizures and she was discharged home with her home medications. She also had an echocardiogram, which indicated an EF of 50% to 60%. Mild mitral regurgitation and mild tricuspid regurgitation. PHYSICAL EXAMINATION: VITAL SIGNS: 97.7, 80, 16, 100% on room air, 143/63. GENERAL: She is awake, alert, and oriented x3. Does not appear in distress. CV: S1, S2 present. No murmurs, rubs, or gallops. ABDOMEN: Soft and nontender. Bowel sounds are present x2. EXTREMITIES: No edema. Pedal pulses are present x2. The patient has been under lot of stress in terms of family dynamics for the parents and also the patient apparently has two girlfriends that he is living with currently. MEDICATIONS: 1. Lamotrigine 25 mg at bedtime. 2. Cymbalta 60 mg at bedtime. 3. Hydroxyzine 25 at bedtime. 4. Latuda 30 mg at bedtime. 5. Loratadine 50 mg at bedtime. No new changes were made. She is going to be discharged home today. Job ID: [id number]
--- NOTE | 2019-06-11 10:17 | PQF ---
KATARZYNA HEBERT KARISHMA [id number] [address] [place] [address] [id number] CLINICAL DOCUMENTATION CLARIFICATION FORM: POST DISCHARGE Addendum to original discharge summary date: ____ Late entry note date: __ DATE: 06-11-2019 ATTN:Emmanuelle Robins Please exercise your independent, professional judgment in responding to the clarification form. Clinical indicators are provided on the bottom of this form for your review Please check appropriate box(s): Conflicting documentation was noted in the Medical Record, please clarify if patient is being treated/monitored for: [ x ]Pseudoseizure [ ]Seizure disorder [ ] Other diagnosis [ ] Unable to determine For continuity of documentation, please document condition throughout progress notes and discharge summary. Thank You. CLINICAL INDICATORS: -"Pseudoseizure"- 06/[address] Figueroa -"Seizure disorder secondary to TBI"-06/[address] Tinoco -"Her seizure lasted 5 minutes" - 06/07 Consult -"patient has been having intermittent seizures through this admission" - 06/07 Consult -"She might be having mixed epileptic and nonepileptic seizures" - 06/07 Consult -"She also had an EEG which did not indicate any seizure like activity" - 06/[address] Figueroa RISK FACTORS -Schizoaffective disorder - 06/[address] Tinoco -Morbid obesity - 06/[address] Tinoco -HTN- 06/[address] Tinoco -Anxiety- 06/[address] Tinoco -Hx of Traumatic brain injury-06/[address] Tinoco TREATMENT - Serial Troponin monitoring -06/[address] Tinoco - IVF -06/[address] Tinoco - Keppra 1500mg - 06/07 Consult - EEG - 06/07 Consult -Neurology consult- 06/[address] Figueroa (This form is maintained as a part of the permanent medical record) 2014 [employer] All Rights Reserved Janet [email or web address] [not provided] MTDD
--- NOTE | 2019-06-13 12:18 | EKG ---
Test Reason : CVA Blood Pressure : / mmHG Vent. Rate : 163 BPM Atrial Rate : 159 BPM P-R Int : 000 ms QRS Dur : 074 ms QT Int : 310 ms P-R-T Axes : 000 053 031 degrees QTc Int : 510 ms Supraventricular tachycardia Nonspecific ST and T wave abnormality Abnormal ECG #1 Confirmed by KARSTEN TRACY, UMESH Reyez ([id number]), features editor TIGRE SPEARS ([id number]) on 06/13/2019 12:17:55 PM Referred By: Confirmed By:UMESH SHELLEY MD
== END 2019-06-09 20:51 | DRG 101 ==
LOC: ERS 20:57 → 2SW 22:30 → OBSVTOIN 22:30 → ERS 23:00 → 2SE 06-07 11:18
PROVIDERS: ADMIT Internal Medicine; ATTEND Internal Medicine
DX: R56.9 Unspecified convulsions (principal); Z68.41 Body mass index [BMI] 40.0-44.9, adult; E87.2 Acidosis; R07.9 Chest pain, unspecified; F25.9 Schizoaffective disorder, unspecified; E28.2 Polycystic ovarian syndrome; J45.40 Moderate persistent asthma, uncomplicated; F32.9 Major depressive disorder, single episode, unspecified; E66.01 Morbid (severe) obesity due to excess calories; F41.9 Anxiety disorder, unspecified; M17.0 Bilateral primary osteoarthritis of knee; J30.9 Allergic rhinitis, unspecified; E11.9 Type 2 diabetes mellitus without complications; D64.9 Anemia, unspecified; R00.0 Tachycardia, unspecified; Z90.49 Acquired absence of other specified parts of digestive tract; Z88.0 Allergy status to penicillin; Z88.1 Allergy status to other antibiotic agents; Z91.010 Allergy to peanuts; Z91.013 Allergy to seafood; Z79.899 Other long term (current) drug therapy; Z79.890 Hormone replacement therapy; Z98.84 Bariatric surgery status; Z87.820 Personal history of traumatic brain injury; E87.6 Hypokalemia; E83.42 Hypomagnesemia; I08.1 Rheumatic disorders of both mitral and tricuspid valves
CPT/HCPCS: 36415; 70551; 71275; 80048; 80053; 82550; 83605; 83735; 84146; 84443; 84484; 84703; 85025; 85610; 85730; 87040; 93005; 93010; 93306; 94664; 94760; 95816; 95819; 96360; 96361; J0153; J1200; J1650; J1953; J2060; J3475; J3480; Q9966

== ENCOUNTER 2019-07-21 15:10 | Emergency (ER) | payer BC, OTHER | END 2019-07-21 16:19 | disposition home or self-care (01) | LOC: ERS 15:10 | DX: F25.9 Schizoaffective disorder, unspecified (principal); F31.9 Bipolar disorder, unspecified; G40.909 Epilepsy, unspecified, not intractable, without status epilepticus; G43.909 Migraine, unspecified, not intractable, without status migrainosus; J45.909 Unspecified asthma, uncomplicated; F41.9 Anxiety disorder, unspecified; F32.9 Major depressive disorder, single episode, unspecified; Z79.899 Other long term (current) drug therapy | CPT/HCPCS: 99281 ==

== ENCOUNTER 2019-07-29 14:19 | Emergency (ER) | payer OTHER ==
[2019-07-29] MEDS ORDERED: EPINEPHrine 1 MG/ML AMP ONE (14:21)
[2019-07-29] MEDS ORDERED: diphenhydrAMINE 50 MG/ML VIAL ONE (14:31)
[2019-07-29] MEDS ORDERED: methylPREDNISolone Sod Succ/PF 125 MG/2 ML VIAL ONE (14:31)
[2019-07-29] MEDS ORDERED: Famotidine/PF 20 mg/2ml Vial ONE (14:31)
--- NOTE | 2019-08-02 03:06 | EKG ---
Test Reason : Blood Pressure : / mmHG Vent. Rate : 131 BPM Atrial Rate : 131 BPM P-R Int : 122 ms QRS Dur : 074 ms QT Int : 338 ms P-R-T Axes : 038 021 022 degrees QTc Int : 499 ms Sinus tachycardia Nonspecific ST abnormality Abnormal ECG Confirmed by GEORGETTE HUERTA D.O. ([id number]), editor city ADINA STEARNS ([id number]) on 08/02/2019 3:05:17 AM Referred By: Confirmed By:GEORGETTE HUERTA D.O.
== END 2019-07-29 17:22 | disposition home or self-care (01) ==
LOC: ERS 14:19
DX: T78.40XA Allergy, unspecified, initial encounter (principal); G40.909 Epilepsy, unspecified, not intractable, without status epilepticus; G43.909 Migraine, unspecified, not intractable, without status migrainosus; J45.909 Unspecified asthma, uncomplicated; F41.9 Anxiety disorder, unspecified; F32.9 Major depressive disorder, single episode, unspecified; Z79.899 Other long term (current) drug therapy
CPT/HCPCS: 93005; 96372; 96374; 96375; J0171; J1200; J2930; S0028

== ENCOUNTER 2019-08-22 00:22 | Emergency (ER) | payer OTHER ==
[2019-08-22 02:42] LABS: Pregnancy Test - Urine (BHCG) Negative (Negative); Pregu Control Background? CLEAR/WHITE (CLR/WHITE); Pregu Control Bar Appear? YES (CONTROL BAR); Specific Gravity 1.015 (1.002-1.036)
== END 2019-08-22 02:51 | disposition home or self-care (01) ==
LOC: ERS 00:22
DX: R41.82 Altered mental status, unspecified (principal); G43.909 Migraine, unspecified, not intractable, without status migrainosus; J45.909 Unspecified asthma, uncomplicated; F41.9 Anxiety disorder, unspecified; F32.9 Major depressive disorder, single episode, unspecified; F25.9 Schizoaffective disorder, unspecified; Z79.899 Other long term (current) drug therapy
CPT/HCPCS: 81025; 99285

== ENCOUNTER 2019-09-20 11:20 | Emergency (ER) | payer OTHER ==
[2019-09-20] MEDS ORDERED: methylPREDNISolone Sod Succ/PF 125 MG/2 ML VIAL ONE (12:03)
[2019-09-20] MEDS ORDERED: Magnesium 2 GM/50 ML BAG (IN WATER) ONE (12:03)
--- NOTE | 2019-09-20 12:14 | RAD ---
Portable chest: HISTORY: Dyspnea cough COMPARISON: none FINDINGS: Lung ortiz are clear. Heart and mediastinum appear unremarkable. Vascularity is normal. Visualized osseous structures unremarkable. IMPRESSION: No acute finding
[2019-09-20 12:20] LABS: #Basophils 0.1 thou/uL (0.0-0.2); #Eosinphils 0.4 thou/uL (0.0-0.7); #Lymphocytes 3.5 thou/uL (1.20-3.40); #Monocytes 0.8 thou/uL (0.11-0.59); #Neutrophils 7.2 thou/uL (1.40-6.50); %Basophils 0.6 % (0.0-1.0); %Eosinophils 3.4 % (0.0-10.0); %Monocytes 6.9 % (0.0-10.0); %Neutrophils 60.2 % (42.0-75.0); Hemoglobin 12.9 g/dL (12.0-16.0); Mean Corpuscular HGB CONC 31.5 g/dL (32.0-36.0); Mean Corpuscular Hemoglobin 26.7 pg (27.0-31.0); Mean Corpuscular Volume 84.6 fL (78.0-98.0); Platelet Count 518 thou/uL (130-400); RBC Distribution Width 14.2 % (11.5-14.5); Red Blood Cell (RBC) Count 4.84 mill/uL (4.20-5.40); White Blood Cell (WBC) Count 11.9 thou/uL (4.8-10.8)
[2019-09-20 12:31] LABS: ALT (SGPT) 9 U/L (8-55); AST (SGOT) 12 U/L (5-34); Albumin 4.4 g/dL (3.5-5.0); Alkaline Phosphatase 68 U/L (40-110); Anion Gap 13 mmol/L (10-20); BUN (Urea Nitrogen) 13 mg/dL (7.0-18.7); Bilirubin, Total 0.8 mg/dL (0.2-1.2); Calc. Creatinine Clearance 0 mL/min (70-130); Calcium 10.1 mg/dL (7.8-10.44); Carbon Dioxide 26 mmol/L (22-29); Chloride 101 mmol/L (98-107); Estimated GFR-MDRD Greater than 90; Globulin 3.4 g/dL (2.4-3.5); Glucose 85 mg/dL (70-105); Potassium 3.9 mmol/L (3.5-5.1); Protein, Total 7.8 g/dL (6.0-8.3); Sodium 136 mmol/L (136-145)
[2019-09-20] MEDS ORDERED: Lidocaine 4% Cream 5 GM TUBE w/ Tegaderm ONE (13:17)
[2019-09-20] MEDS ORDERED: hydrOXYzine Pamoate 25 mg Capsule ONE (13:17)
== END 2019-09-20 14:49 | disposition home or self-care (01) ==
LOC: ERS 11:20
DX: J45.901 Unspecified asthma with (acute) exacerbation (principal); G43.909 Migraine, unspecified, not intractable, without status migrainosus; Z79.899 Other long term (current) drug therapy
CPT/HCPCS: 71045; 80053; 85025; 93005; 94640; 96374; 96375; J2930; J3475; J7620; Q0177

== ENCOUNTER 2019-11-17 02:49 | Emergency (ER) | payer OTHER ==
[2019-11-17] MEDS ORDERED: Naproxen 500 MG TAB ONE (03:41)
--- NOTE | 2019-11-17 08:21 | RAD ---
RADIOGRAPH CHEST 1 VIEW: HISTORY: 24-year-old female with chest pain. FINDINGS: There are no air space densities, pulmonary edema, pneumothorax, or cardiomegaly. The lateral costop hrenic angles are sharp. IMPRESSION: No acute cardiopulmonary findings. jn [] POS: CET
== END 2019-11-17 04:00 | disposition home or self-care (01) ==
LOC: ERS 02:49
DX: M94.0 Chondrocostal junction syndrome [Tietze] (principal); G43.909 Migraine, unspecified, not intractable, without status migrainosus; G40.909 Epilepsy, unspecified, not intractable, without status epilepticus; F25.9 Schizoaffective disorder, unspecified; F41.8 Other specified anxiety disorders; F32.9 Major depressive disorder, single episode, unspecified; Z79.51 Long term (current) use of inhaled steroids; Z79.899 Other long term (current) drug therapy
CPT/HCPCS: 71045; 93005

== ENCOUNTER 2020-11-14 22:21 | Emergency (ER) | payer OTHER ==
[2020-11-14 23:01] LABS: #Basophils 0.1 thou/uL (0.0-0.2); #Eosinphils 0.3 thou/uL (0.0-0.7); #Monocytes 0.7 thou/uL (0.11-0.59); #Neutrophils 7.1 thou/uL (1.40-6.50); %Basophils 0.8 % (0.0-1.0); %Eosinophils 2.6 % (0.0-10.0); %Lymphocytes 32.8 % (21.0-51.0); %Monocytes 5.5 % (0.0-10.0); %Neutrophils 58.3 % (42.0-75.0); Hemoglobin 15.1 g/dL (12.0-16.0); Mean Corpuscular HGB CONC 32.3 g/dL (32.0-36.0); Mean Corpuscular Hemoglobin 30.6 pg (27.0-31.0); Mean Corpuscular Volume 94.8 fL (78.0-98.0); Mean Platelet Volume 7.9 fL (7.4-10.4); Platelet Count 350 thou/uL (130-400); RBC Distribution Width 13.9 % (11.5-14.5); Red Blood Cell (RBC) Count 4.94 mill/uL (4.20-5.40); White Blood Cell (WBC) Count 12.1 thou/uL (4.8-10.8)
[2020-11-14 23:15] LABS: ALT (SGPT) 27 U/L (8-55); AST (SGOT) 13 U/L (5-34); Acetaminophen Less than 6.0 mcg/mL (10.0-30.0); Albumin 4.2 g/dL (3.5-5.0); Alcohol Less than 10 mg/dL (Less than 10); Alkaline Phosphatase 50 U/L (40-110); Anion Gap 16 mmol/L (10-20); BUN (Urea Nitrogen) 17 mg/dL (7.0-18.7); Calc. Creatinine Clearance 0 mL/min (70-130); Calcium 9.5 mg/dL (7.8-10.44); Carbon Dioxide 24 mmol/L (22-29); Chloride 105 mmol/L (98-107); Globulin 3.2 g/dL (2.4-3.5); Glucose 86 mg/dL (70-105); Potassium 4.1 mmol/L (3.5-5.1); Protein, Total 7.4 g/dL (6.0-8.3); Salicylate Less than 8.0 mg/dL (15.0-30.0); Sodium 141 mmol/L (136-145)
[2020-11-14 23:25] LABS: Pregnancy Test - Urine (BHCG) Negative (Negative); Pregu Control Background? CLEAR/WHITE (CLR/WHITE); Pregu Control Bar Appear? YES (CONTROL BAR); Specific Gravity 1.038 (1.002-1.036)
[2020-11-14 23:27] LABS: Bacteria/HPF None Seen HPF (None Seen); Bilirubin Negative (Negative); Blood, Urine Negative (Negative); Clarity Turbid (Clear); Glucose, Urine (Dipstick) Normal (Negative); Ketone, Urine 20 mg/dL (Negative); Leukocyte Negative Leu/uL (Negative); Mucous/LPF 2+ LPF (<2+); Nitrite Negative (Negative); Protein, Urine (Dipstick) 30 mg/dL (Neg-Trace); RBC/HPF 0-3 HPF (0-3); Specific Gravity, Urine 1.038 (1.002-1.036); WBC/HPF 0-3 HPF (0-3); pH, Urine 7.5 (5.0-9.0)
[2020-11-14 23:59] LABS: Amphetamine Detected (NotDetected); Barbiturates Screen Not Detected (NotDetected); Benzodiazepine Screen Not Detected (NotDetected); Cocaine Metabolite Screen Not Detected (NotDetected); Medtox Control Line Valid? VALID (VALID); Medtox Reader # READER 4; Methadone Not Detected (NotDetected); Methamphetamine Detected (NotDetected); Opiate Screen Not Detected (NotDetected); Oxycodone Screen Not Detected (NotDetected); Phencyclidine (PCP) Not Detected (NotDetected); THC/Cannabinoid Screen Not Detected (NotDetected); Tricyclic Screen Not Detected (NotDetected)
== END 2020-11-15 02:10 | disposition home or self-care (01) ==
LOC: ERS 22:21
DX: F41.9 Anxiety disorder, unspecified (principal); F43.0 Acute stress reaction; E10.9 Type 1 diabetes mellitus without complications; J45.909 Unspecified asthma, uncomplicated; G40.909 Epilepsy, unspecified, not intractable, without status epilepticus; G43.909 Migraine, unspecified, not intractable, without status migrainosus; Z79.899 Other long term (current) drug therapy
CPT/HCPCS: 80053; 80306; 80307; 81003; 81015; 81025; 84443; 85025; 93005; 94760

== ENCOUNTER 2021-03-14 20:58 | Emergency (ER) | payer BC, OTHER ==
[2021-03-14] MEDS ORDERED: Lorazepam 2 MG/ML VIAL ONE (22:18)
[2021-03-14] MEDS ORDERED: levETIRAcetam in NS 100 ML ONE (22:19)
[2021-03-14 22:26] LABS: ALT (SGPT) 8 U/L (8-55); AST (SGOT) 11 U/L (5-34); Albumin 3.7 g/dL (3.5-5.0); Alkaline Phosphatase 48 U/L (40-110); Anion Gap 12 mmol/L (10-20); BUN (Urea Nitrogen) 14 mg/dL (7.0-18.7); Bilirubin, Total 0.8 mg/dL (0.2-1.2); Calc. Creatinine Clearance 0 mL/min (70-130); Calcium 8.8 mg/dL (7.8-10.44); Carbon Dioxide 22 mmol/L (22-29); Chloride 109 mmol/L (98-107); Globulin 2.8 g/dL (2.4-3.5); Glucose 87 mg/dL (70-105); Potassium 3.7 mmol/L (3.5-5.1); Protein, Total 6.5 g/dL (6.0-8.3); Sodium 139 mmol/L (136-145)
[2021-03-14 22:37] LABS: Band 8 % (5-11); Hemoglobin 13.4 g/dL (12.0-16.0); Lymphocytes 43 % (21-51); MDiff Complete? YES; Mean Corpuscular HGB CONC 33.6 g/dL (32.0-36.0); Mean Corpuscular Hemoglobin 32.1 pg (27.0-31.0); Mean Corpuscular Volume 95.6 fL (78.0-98.0); Mean Platelet Volume 7.6 fL (7.4-10.4); Monocytes 3 % (0-10); Neutrophil 46 % (42-75); Platelet Count 302 thou/uL (130-400); RBC Distribution Width 11.6 % (11.5-14.5); Red Blood Cell (RBC) Count 4.17 mill/uL (4.20-5.40); White Blood Cell (WBC) Count 8.1 thou/uL (4.8-10.8)
[2021-03-14 23:26] LABS: BHCG - Serum Negative (NEGATIVE); Pregs Control Background? CLEAR/WHITE (CLR/WHITE); Pregs Control Bar Appear? YES (CONTROL BAR)
== END 2021-03-14 23:23 | disposition home or self-care (01) ==
LOC: ERS 20:58
DX: G40.909 Epilepsy, unspecified, not intractable, without status epilepticus (principal); J45.909 Unspecified asthma, uncomplicated; E10.9 Type 1 diabetes mellitus without complications
CPT/HCPCS: 36415; 80053; 84146; 84703; 85025; 96365; J1953; J2060

== ENCOUNTER 2021-07-25 11:26 | Emergency (ER) | payer BC, OTHER ==
[2021-07-25 12:27] LABS: #Basophils 0.1 thou/uL (0.0-0.2); #Eosinphils 0.4 thou/uL (0.0-0.7); #Lymphocytes 3.7 thou/uL (1.20-3.40); #Monocytes 0.6 thou/uL (0.11-0.59); #Neutrophils 3.9 thou/uL (1.40-6.50); %Basophils 1.6 % (0.0-1.0); %Eosinophils 4.6 % (0.0-10.0); %Lymphocytes 42.2 % (21.0-51.0); %Monocytes 6.4 % (0.0-10.0); %Neutrophils 45.2 % (42.0-75.0); Hemoglobin 14.7 g/dL (12.0-16.0); Mean Corpuscular HGB CONC 32.4 g/dL (32.0-36.0); Mean Corpuscular Hemoglobin 30.4 pg (27.0-31.0); Mean Corpuscular Volume 93.9 fL (78.0-98.0); Mean Platelet Volume 7.7 fL (7.4-10.4); Platelet Count 408 thou/uL (130-400); RBC Distribution Width 11.6 % (11.5-14.5); Red Blood Cell (RBC) Count 4.84 mill/uL (4.20-5.40); White Blood Cell (WBC) Count 8.6 thou/uL (4.8-10.8)
[2021-07-25 13:00] LABS: ALT (SGPT) 7 U/L (8-55); AST (SGOT) 12 U/L (5-34); Albumin 4.2 g/dL (3.5-5.0); Alkaline Phosphatase 48 U/L (40-110); Anion Gap 14 mmol/L (10-20); BUN (Urea Nitrogen) 13 mg/dL (7.0-18.7); Bilirubin, Total 1.1 mg/dL (0.2-1.2); Calc. Creatinine Clearance 0 mL/min (70-130); Calcium 9.9 mg/dL (7.8-10.44); Carbon Dioxide 25 mmol/L (22-29); Glucose 96 mg/dL (70-105); Lipase 23 U/L (8-78); Protein, Total 7.2 g/dL (6.0-8.3)
[2021-07-25 13:12] LABS: Chloride 102 mmol/L (98-107); Potassium 3.9 mmol/L (3.5-5.1); Sodium 137 mmol/L (136-145)
== END 2021-07-25 16:06 | disposition left against medical advice (07) ==
LOC: ERS 11:26
DX: Z53.21 Procedure and treatment not carried out due to patient leaving prior to being seen by health care provider (principal)
CPT/HCPCS: 36415; 71045; 80053; 83690; 84484; 85025; 93005; 94760

== ENCOUNTER 2021-08-04 13:26 | Emergency (ER) | payer BC, OTHER ==
[2021-08-04 14:44] LABS: #Eosinphils 0.2 thou/uL (0.0-0.7); #Lymphocytes 2.9 thou/uL (1.20-3.40); #Monocytes 0.6 thou/uL (0.11-0.59); #Neutrophils 4.4 thou/uL (1.40-6.50); %Basophils 0.5 % (0.0-1.0); %Eosinophils 2.9 % (0.0-10.0); %Neutrophils 53.6 % (42.0-75.0); Hemoglobin 14.2 g/dL (12.0-16.0); Mean Corpuscular Hemoglobin 32.5 pg (27.0-31.0); Mean Corpuscular Volume 95.5 fL (78.0-98.0); Mean Platelet Volume 7.4 fL (7.4-10.4); Platelet Count 315 thou/uL (130-400); RBC Distribution Width 11.6 % (11.5-14.5); Red Blood Cell (RBC) Count 4.36 mill/uL (4.20-5.40); White Blood Cell (WBC) Count 8.2 thou/uL (4.8-10.8)
== END 2021-08-04 15:54 | disposition home or self-care (01) ==
LOC: ERS 13:26
DX: N93.9 Abnormal uterine and vaginal bleeding, unspecified (principal); I10 Essential (primary) hypertension; E11.9 Type 2 diabetes mellitus without complications; J45.909 Unspecified asthma, uncomplicated; Z79.899 Other long term (current) drug therapy
CPT/HCPCS: 36415; 84702; 85025; 86900; 86901; 99284

== ENCOUNTER 2021-12-22 08:30 | Emergency (ER) | payer BC, OTHER ==
[2021-12-22 09:47] LABS: #Eosinphils 0.2 thou/uL (0.0-0.7); #Lymphocytes 1.9 thou/uL (1.20-3.40); #Monocytes 0.4 thou/uL (0.11-0.59); %Basophils 0.5 % (0.0-1.0); %Eosinophils 2.9 % (0.0-10.0); %Lymphocytes 28.9 % (21.0-51.0); %Monocytes 5.9 % (0.0-10.0); %Neutrophils 61.7 % (42.0-75.0); Hemoglobin 14.4 g/dL (12.0-16.0); Mean Corpuscular HGB CONC 32.2 g/dL (32.0-36.0); Mean Corpuscular Volume 96.2 fL (78.0-98.0); Mean Platelet Volume 7.7 fL (7.4-10.4); Platelet Count 361 thou/uL (130-400); RBC Distribution Width 11.4 % (11.5-14.5); Red Blood Cell (RBC) Count 4.63 mill/uL (4.20-5.40); White Blood Cell (WBC) Count 6.4 thou/uL (4.8-10.8)
[2021-12-22 10:15] LABS: ALT (SGPT) Less than 7 U/L (8-55); AST (SGOT) 13 U/L (5-34); Acetaminophen Less than 6.0 mcg/mL (10.0-30.0); Albumin 4.4 g/dL (3.5-5.0); Alcohol Less than 10 mg/dL (Less than 10); Alkaline Phosphatase 48 U/L (40-110); Anion Gap 13 mmol/L (10-20); BUN (Urea Nitrogen) 13 mg/dL (7.0-18.7); Bilirubin, Total 1.3 mg/dL (0.2-1.2); Calc. Creatinine Clearance 0 mL/min (70-130); Calcium 9.1 mg/dL (7.8-10.44); Carbon Dioxide 26 mmol/L (22-29); Chloride 103 mmol/L (98-107); Glucose 84 mg/dL (70-105); Potassium 3.8 mmol/L (3.5-5.1); Protein, Total 7.4 g/dL (6.0-8.3); Salicylate Less than 8.0 mg/dL (15.0-30.0); Sodium 138 mmol/L (136-145)
[2021-12-22 10:59] LABS: Bacteria/HPF None Seen HPF (None Seen); Bilirubin Negative (Negative); Blood, Urine Negative (Negative); Clarity Clear (Clear); Glucose, Urine (Dipstick) Normal (Negative); Ketone, Urine Negative (Negative); Leukocyte Negative Leu/uL (Negative); Nitrite Negative (Negative); Protein, Urine (Dipstick) 30 mg/dL (Neg-Trace); RBC/HPF 0-3 HPF (0-3); Specific Gravity, Urine 1.036 (1.002-1.036); Squamous Epithelial 0-3 HPF (0-3); WBC/HPF 0-3 HPF (0-3)
[2021-12-22 11:10] LABS: Amphetamine Not Detected (NotDetected); Barbiturates Screen Not Detected (NotDetected); Benzodiazepine Screen Not Detected (NotDetected); Cocaine Metabolite Screen Not Detected (NotDetected); Methadone Not Detected (NotDetected); Methamphetamine Not Detected (NotDetected); Opiate Screen Not Detected (NotDetected); Oxycodone Screen Not Detected (NotDetected); Phencyclidine (PCP) Not Detected (NotDetected); THC/Cannabinoid Screen Not Detected (NotDetected); Tricyclic Screen Not Detected (NotDetected)
[2021-12-22 11:35] LABS: Pregnancy Test - Urine (BHCG) Negative (Negative); Pregu Control Background? CLEAR/WHITE (CLR/WHITE); Pregu Control Bar Appear? YES (CONTROL BAR); Specific Gravity 1.036 (1.002-1.036)
== END 2021-12-22 14:30 | disposition home or self-care (01) ==
LOC: ERS 08:30
DX: F32.A Depression, unspecified (principal); Z79.899 Other long term (current) drug therapy; J45.909 Unspecified asthma, uncomplicated; E11.9 Type 2 diabetes mellitus without complications; I10 Essential (primary) hypertension; F43.10 Post-traumatic stress disorder, unspecified; Z20.822 Contact with and (suspected) exposure to COVID-19
CPT/HCPCS: 36415; 80053; 80306; 80307; 81003; 81015; 81025; 84443; 85025; 93005; 94760

== ENCOUNTER 2023-02-03 16:11 | Inpatient (IN) | payer BC, OTHER ==
[2023-02-03] MEDS ORDERED: Dexamethasone 10 MG/ML VIAL ONE (16:24)
[2023-02-03] MEDS ORDERED: Ipratropium/Albuterol 3 ML NEB ONE (16:30)
[2023-02-03 17:14] LABS: SARS-CoV-2 NAA Rapid Test Not Detected (NotDetected)
[2023-02-03] MEDS ORDERED: Magnesium 2 GM/50 ML BAG (IN WATER) ONE (17:51)
[2023-02-03] MEDS ORDERED: Ipratropium Bromide 2.5 ml Neb NEB PRN (18:24)
[2023-02-03] MEDS ORDERED: Albuterol 2.5 MG/0.5 ML NEB NEB PRN (18:25)
[2023-02-03] MEDS: lamoTRIgine 25 MG TAB PO SCH (21:11)
[2023-02-03] MEDS: hydrOXYzine 25 MG TAB PO SCH (21:11)
[2023-02-03] MEDS: methylPREDNISolone Sod Succ/PF 125 MG/2 ML VIAL IVP SCH (21:11)
[2023-02-03] MEDS: Lurasidone 20 MG TABLET PO SCH (21:12)
[2023-02-03] MEDS: Ipratropium Bromide 2.5 ml Neb NEB SCH ×4 (21:27→21:30)
[2023-02-04] MEDS: Ipratropium 200 Puff Oral Inhaler INH SCH ×7 (01:44→23:22)
[2023-02-04 05:36] LABS: Anion Gap 14 mmol/L (10-20); BUN (Urea Nitrogen) 12 mg/dL (7.0-20.6); Calcium 8.8 mg/dL (7.8-10.44); Carbon Dioxide 14 mmol/L (22-29); Chloride 110 mmol/L (98-107); Glucose 157 mg/dL (70-105); Potassium 4.8 mmol/L (3.5-5.1); Sodium 133 mmol/L (136-145)
[2023-02-04 07:24] LABS: #Monocytes 0.2 thou/uL (0.11-0.59); #Neutrophils 6.7 thou/uL (1.40-6.50); %Basophils 0.1 % (0.0-1.0); %Eosinophils 0.1 % (0.0-10.0); %Lymphocytes 12.5 % (21.0-51.0); %Neutrophils 85.3 % (42.0-75.0); Mean Corpuscular HGB CONC 30.6 g/dL (32.0-36.0); Mean Corpuscular Hemoglobin 26.6 pg (27.0-31.0); Mean Corpuscular Volume 86.9 fl (78.0-98.0); Mean Platelet Volume 8.5 fL (7.4-10.4); Platelet Count 306 10x3/uL (130-400); RBC Distribution Width 13.1 % (11.5-14.5); Red Blood Cell (RBC) Count 4.89 mill/uL (4.20-6.10); White Blood Cell (WBC) Count 7.9 10x3/uL (4.8-10.8)
[2023-02-04] MEDS ORDERED: HumaLOG 300 UNITS/3 ML VIAL SC PRN (08:29)
[2023-02-04] MEDS ORDERED: Dextrose 50% Abboject 50 ML SYRINGE SLOW IVP PRN (08:29)
[2023-02-04] MEDS ORDERED: Dextrose 5% in Water 1,000 ML IV PRN (08:29)
[2023-02-04] MEDS: methylPREDNISolone Sod Succ/PF 125 MG/2 ML VIAL IVP SCH ×2 (09:18→20:04)
[2023-02-04 11:43] VITALS: BMI 28.8
[2023-02-04] MEDS ORDERED: Acetaminophen 500 MG TAB PO PRN (19:49)
[2023-02-04] MEDS: hydrOXYzine 25 MG TAB PO SCH (20:03)
[2023-02-04] MEDS: Lurasidone 20 MG TABLET PO SCH (20:04)
[2023-02-04] MEDS: lamoTRIgine 25 MG TAB PO SCH (20:04)
[2023-02-05] MEDS: Ipratropium 200 Puff Oral Inhaler INH SCH ×6 (03:52→23:00)
[2023-02-05 05:36] LABS: ALT (SGPT) Less than 7 U/L (8-55); AST (SGOT) 7 U/L (5-34); Albumin 3.7 g/dL (3.5-5.0); Alkaline Phosphatase 41 U/L (40-110); Anion Gap 13 mmol/L (10-20); BUN (Urea Nitrogen) 14 mg/dL (7.0-18.7); Bilirubin, Total 0.6 mg/dL (0.2-1.2); Calc. Creatinine Clearance 161 mL/min (70-130); Carbon Dioxide 20 mmol/L (22-29); Chloride 110 mmol/L (98-107); Estimated GFR 125; Globulin 2.8 g/dL (2.4-3.5); Glucose 122 mg/dL (70-105); Potassium 4.5 mmol/L (3.5-5.1); Protein, Total 6.5 g/dL (6.0-8.3); Sodium 138 mmol/L (136-145)
[2023-02-05 05:37] LABS: Band 3 % (5-11); Hemoglobin 12.7 g/dL (12.0-16.0); Lymphocytes 14 % (21-51); MDiff Complete? YES; Mean Corpuscular HGB CONC 31.6 g/dL (32.0-36.0); Mean Corpuscular Hemoglobin 28.2 pg (27.0-31.0); Mean Corpuscular Volume 89.1 fl (78.0-98.0); Mean Platelet Volume 8.9 fL (7.4-10.4); Monocytes 1 % (0-10); Neutrophil 82 % (42-75); Platelet Count 301 10x3/uL (130-400); Platelet Morphology Comment Appears Adequate; RBC Distribution Width 13.2 % (11.5-14.5); RBC Morphology Normal; Red Blood Cell (RBC) Count 4.51 mill/uL (4.20-5.40); White Blood Cell (WBC) Count 12.4 10x3/uL (4.8-10.8)
[2023-02-05] MEDS: methylPREDNISolone Sod Succ/PF 125 MG/2 ML VIAL IVP SCH ×2 (09:16→20:16)
[2023-02-05] MEDS: Lurasidone 20 MG TABLET PO SCH (20:16)
[2023-02-05] MEDS: lamoTRIgine 25 MG TAB PO SCH (20:16)
[2023-02-05] MEDS: hydrOXYzine 25 MG TAB PO SCH (20:17)
[2023-02-06] MEDS: Ipratropium 200 Puff Oral Inhaler INH SCH ×2 (03:22→07:28)
[2023-02-06 05:05] LABS: #Lymphocytes 1.4 thou/uL (1.20-3.40); #Monocytes 0.3 thou/uL (0.11-0.59); #Neutrophils 9.4 thou/uL (1.40-6.50); %Basophils 0.3 % (0.0-1.0); %Lymphocytes 12.8 % (21.0-51.0); %Monocytes 2.9 % (0.0-10.0); Hemoglobin 12.2 g/dL (12.0-16.0); Mean Corpuscular Hemoglobin 27.8 pg (27.0-31.0); Mean Corpuscular Volume 89.6 fl (78.0-98.0); Mean Platelet Volume 8.9 fL (7.4-10.4); Platelet Count 253 10x3/uL (130-400); RBC Distribution Width 13.2 % (11.5-14.5); Red Blood Cell (RBC) Count 4.41 mill/uL (4.20-5.40); White Blood Cell (WBC) Count 11.2 10x3/uL (4.8-10.8)
[2023-02-06 05:24] LABS: ALT (SGPT) Less than 7 U/L (8-55); AST (SGOT) 7 U/L (5-34); Albumin 3.4 g/dL (3.5-5.0); Alkaline Phosphatase 36 U/L (40-110); Anion Gap 11 mmol/L (10-20); BUN (Urea Nitrogen) 13 mg/dL (7.0-18.7); Bilirubin, Total 0.5 mg/dL (0.2-1.2); Calc. Creatinine Clearance 154 mL/min (70-130); Calcium 8.7 mg/dL (7.8-10.44); Carbon Dioxide 23 mmol/L (22-29); Chloride 108 mmol/L (98-107); Estimated GFR 123; Globulin 2.7 g/dL (2.4-3.5); Glucose 111 mg/dL (70-105); Potassium 4.2 mmol/L (3.5-5.1); Protein, Total 6.1 g/dL (6.0-8.3); Sodium 138 mmol/L (136-145)
[2023-02-06] MEDS: methylPREDNISolone Sod Succ/PF 125 MG/2 ML VIAL IVP SCH (08:47)
[2023-02-06 12:30] VITALS: BP 116/62; TEMP 98.6
[2023-02-06] MEDS ORDERED: Ipratropium 200 Puff Oral Inhaler INH SCH (13:00)
== END 2023-02-06 13:10 | disposition home or self-care (01) | DRG 203 ==
LOC: SUATTDRO 16:11 → EDSEX 16:11 → ERS 16:11 → 2SW 17:58 → EDSEX 17:58 → OBSVTOIN 02-05 14:43
PROVIDERS: ADMIT Family Medicine; ATTEND Internal Medicine
DX: J45.901 Unspecified asthma with (acute) exacerbation (principal); F25.0 Schizoaffective disorder, bipolar type; F41.9 Anxiety disorder, unspecified; G40.909 Epilepsy, unspecified, not intractable, without status epilepticus; E11.65 Type 2 diabetes mellitus with hyperglycemia; I10 Essential (primary) hypertension; Z20.822 Contact with and (suspected) exposure to COVID-19; F43.10 Post-traumatic stress disorder, unspecified; Z98.84 Bariatric surgery status; Z79.52 Long term (current) use of systemic steroids; Z79.899 Other long term (current) drug therapy; Z88.1 Allergy status to other antibiotic agents; Z88.8 Allergy status to other drugs, medicaments and biological substances; Z91.012 Allergy to eggs; Z91.018 Allergy to other foods; Z91.040 Latex allergy status; Z91.010 Allergy to peanuts; Z88.0 Allergy status to penicillin; Z91.013 Allergy to seafood; Z90.89 Acquired absence of other organs
CPT/HCPCS: 36415; 36416; 71045; 80048; 80053; 84145; 85025; 93005; 94640; 94644; 94799; 96365; 96366; 96372; 96375; 96376; G0378; J1100; J1650; J2930; J3475; J7620

== ENCOUNTER 2023-04-02 20:43 | Emergency (ER) | payer BC, OTHER | END 2023-04-02 22:24 | disposition left against medical advice (07) | LOC: ERS 20:43 | DX: Z53.21 Procedure and treatment not carried out due to patient leaving prior to being seen by health care provider (principal) ==

== ENCOUNTER 2023-04-27 21:13 | Emergency (ER) | payer BC, OTHER | END 2023-04-27 22:50 | disposition home or self-care (01) | LOC: ERS 21:13 | DX: S01.01XA Laceration without foreign body of scalp, initial encounter (principal); W20.8XXA Other cause of strike by thrown, projected or falling object, initial encounter; Y93.72 Activity, wrestling | CPT/HCPCS: 99282 ==

== ENCOUNTER 2023-06-25 11:19 | Emergency (ER) | payer BC, OTHER | END 2023-06-25 12:23 | disposition left against medical advice (07) | LOC: ERS 11:19 | DX: Z53.21 Procedure and treatment not carried out due to patient leaving prior to being seen by health care provider (principal) ==

== ENCOUNTER 2023-08-30 08:12 | Emergency (ER) | payer BC, OTHER ==
[2023-08-30] MEDS ORDERED: Albuterol 2.5 MG/0.5 ML NEB ONE (08:25)
[2023-08-30] MEDS ORDERED: Magnesium 2 GM/50 ML BAG (IN WATER) ONE (08:32)
[2023-08-30] MEDS ORDERED: methylPREDNISolone Sod Succ/PF 125 MG/2 ML VIAL ONE (08:33)
[2023-08-30 08:51] LABS: #Eosinphils 0.4 thou/uL (0.0-0.7); #Monocytes 0.6 thou/uL (0.11-0.59); #Neutrophils 3.5 thou/uL (1.40-6.50); %Basophils 0.4 % (0.0-1.0); %Eosinophils 6.2 % (0.0-10.0); %Lymphocytes 35.4 % (21.0-51.0); %Monocytes 7.9 % (0.0-10.0); %Neutrophils 49.8 % (42.0-75.0); Hematocrit 43.4 % (36.0-47.0); Hemoglobin 13.9 g/dL (12.0-16.0); Mean Corpuscular Hemoglobin 28.7 pg (27.0-31.0); Mean Corpuscular Volume 89.7 fl (78.0-98.0); Mean Platelet Volume 10.1 fL (7.4-10.4); Platelet Count 368 10x3/uL (130-400); RBC Distribution Width 13.3 % (11.5-14.5); Red Blood Cell (RBC) Count 4.84 mill/uL (4.20-5.40); White Blood Cell (WBC) Count 7.1 10x3/uL (4.8-10.8)
[2023-08-30 10:24] LABS: ALT (SGPT) 10 U/L (8-55); AST (SGOT) 17 U/L (5-34); Albumin 4.2 g/dL (3.5-5.0); Alkaline Phosphatase 59 U/L (40-110); Anion Gap 17 mmol/L (10-20); BUN (Urea Nitrogen) 12 mg/dL (7.0-18.7); Calc. Creatinine Clearance 0 mL/min (70-130); Calcium 8.8 mg/dL (7.8-10.44); Carbon Dioxide 22 mmol/L (22-29); Chloride 105 mmol/L (98-107); Estimated GFR 116; Globulin 3.3 g/dL (2.4-3.5); Glucose 78 mg/dL (70-105); Potassium 3.6 mmol/L (3.5-5.1); Protein, Total 7.5 g/dL (6.0-8.3); Sodium 140 mmol/L (136-145)
== END 2023-08-30 14:21 | disposition home or self-care (01) ==
LOC: ERS 08:12
DX: J45.901 Unspecified asthma with (acute) exacerbation (principal); E10.9 Type 1 diabetes mellitus without complications
CPT/HCPCS: 71045; 80053; 85025; 94644; 96365; 96375; J2930; J3475; J7611

== ENCOUNTER 2023-10-23 15:09 | Emergency (ER) | payer BC, OTHER | END 2023-10-23 16:12 | disposition home or self-care (01) | LOC: ERS 15:09 | DX: H10.9 Unspecified conjunctivitis (principal); E10.9 Type 1 diabetes mellitus without complications; J45.909 Unspecified asthma, uncomplicated; Z79.899 Other long term (current) drug therapy | CPT/HCPCS: 99283 ==

== ENCOUNTER 2023-11-09 12:05 | Emergency (ER) | payer BC, OTHER | END 2023-11-09 14:00 | disposition home or self-care (01) | LOC: ERS 12:05 | DX: H66.91 Otitis media, unspecified, right ear (principal); E10.9 Type 1 diabetes mellitus without complications; J45.909 Unspecified asthma, uncomplicated; I10 Essential (primary) hypertension; Z79.899 Other long term (current) drug therapy | CPT/HCPCS: 99282 ==

== ENCOUNTER 2023-11-13 10:39 | Emergency (ER) | payer BC, OTHER | END 2023-11-13 11:37 | disposition home or self-care (01) | LOC: ERS 10:39 | DX: L08.9 Local infection of the skin and subcutaneous tissue, unspecified (principal); E10.9 Type 1 diabetes mellitus without complications; I10 Essential (primary) hypertension; J45.909 Unspecified asthma, uncomplicated; Z79.899 Other long term (current) drug therapy | CPT/HCPCS: 99282 ==